=== PATIENT | female | born 1990 | race Caucasian/White ===

== ENCOUNTER 2017-12-25 18:16 | Emergency (ER) | payer OTHER ==
[~2017-12-25] VITALS: Ht 162.6 cm; Wt 98.9 kg
[~2017-12-25 18:16] MED LIST: CALTRATE 600 +1 EACH; CLEOCIN HCL150 MG PO; HYDROCODONE-AP1 EAC6 PO; KEFLEX500 MG PO; NAPROXEN 375 M375 M1 PO; NOHOMEMEDICATIONS; NORCO 5-325 TA1 EACH PO; PRENATAL
[2017-12-25] MEDS ORDERED: TRAMADOL 50 MG50 MG PO (19:00)
[2017-12-25] MEDS ORDERED: DOXYCYCLINE 10100 M2 PO (19:00)
[2017-12-25 19:08] VITALS: BP 132/70
== END 2017-12-25 19:09 | disposition home or self-care (01) ==
LOC: M.ERS 18:16
DX: S50.811A Abrasion of right forearm, initial encounter (principal); F17.210 Nicotine dependence, cigarettes, uncomplicated; Z90.49 Acquired absence of other specified parts of digestive tract; Z90.89 Acquired absence of other organs; Z88.1 Allergy status to other antibiotic agents; Z88.5 Allergy status to narcotic agent; Z88.0 Allergy status to penicillin; Z88.2 Allergy status to sulfonamides; W55.03XA Scratched by cat, initial encounter; Y93.89 Activity, other specified; Y92.89 Other specified places as the place of occurrence of the external cause; Y99.8 Other external cause status

== ENCOUNTER 2020-11-08 19:34 | Emergency (ER) | payer OTHER ==
[~2020-11-08] VITALS: Ht 162.6 cm; Wt 99.8 kg
[~2020-11-08 19:34] MED LIST changes: +DOXYCYCLINE 10100 M2 PO; +TRAMADOL 50 MG50 MG PO
[2020-11-08 20:25] VITALS: BP 136/61
== END 2020-11-08 20:25 | disposition home or self-care (01) ==
LOC: M.ERS 19:34
DX: S61.210A Laceration without foreign body of right index finger without damage to nail, initial encounter (principal); F17.210 Nicotine dependence, cigarettes, uncomplicated; Z90.49 Acquired absence of other specified parts of digestive tract; Z88.1 Allergy status to other antibiotic agents; Z88.0 Allergy status to penicillin; Z88.2 Allergy status to sulfonamides; Z88.5 Allergy status to narcotic agent; W26.8XXA Contact with other sharp object(s), not elsewhere classified, initial encounter; Y93.89 Activity, other specified; Y92.89 Other specified places as the place of occurrence of the external cause; Y99.8 Other external cause status